=== PATIENT | female | born 1955 | race Caucasian/White ===

== ENCOUNTER 2016-05-02 11:21 | Day surgery (SDC) | payer BC ==
--- NOTE | 2016-04-30 15:16 | HP ---
HISTORY OF PRESENT ILLNESS: The patient is a 60 year-old epigastric pain, associated nausea, no vomiting, some loose stools after her hospital stay. She was noted to have cholelithiasis on ultrasound on 03/16/16. PAST MEDICAL HISTORY: Hypothyroidism, hypercholesterolemia. MEDICATIONS: Levothyroxine, Ropinirole, Nexium, gabapentin, Tricor, [place]. PAST SURGICAL HISTORY: Tubal, total left knee, and half of her thyroid removed and 2 hernia repairs in the past. FAMILY HISTORY: Diabetes, [place], hypertension, hypercholesterolemia. ALLERGIES: No known drug allergies. SOCIAL HISTORY: No smoking or alcohol abuse. REVIEW OF SYSTEMS: Ten systems reviewed, no chest pains or palpitations. Other systems negative or noncontributory as noted above, per pre-admission questionnaire. PHYSICAL EXAMINATION: GENERAL: No acute distress. HEENT: Sclerae nonicteric. NECK: No JVD. CHEST: Normal excursions. Nonlabored breathing. CARDIOVASCULAR: Regular rate and rhythm. ABDOMEN: Soft, nontender in office exam, no peritoneal signs, nondistended. EXTREMITIES: No edema, no cyanosis. NEUROLOGICAL: Alert, moving extremities grossly symmetrically, no gross motor deficits noted. IMPRESSION: Symptomatic cholelithiasis, probable chronic cholecystitis. [place] the patient would benefit from cholecystectomy. The risks and benefits explained in detail, not limited to bleeding, infection, risk of trocar injury or hernia, small risk of bowel/bladder, blood vessel injury, small risk of bile leak, bile duct injury, retained stone or sludge, possibly requiring further procedure, either open or ERCP. General risk of anesthesia, DVT, PE, pneumonia. Risk of aches, pains, bloating, constipation, and/or loose stools possibly chronic in nature. Possibly this procedure may not improve her symptoms, she may need further workup, endoscopy, or other studies or procedures. She understands, agrees with plan of procedure. We will proceed with lap cholecystectomy, possible open as an outpatient.
[~2016-05-02 11:21] MED LIST: DIPRIVAN 200 MG/20 ML IV ONE; Decadron 4 MG INJ IV ONE; Ephedrine Sulfate 50 MG/ML IJ ONE; Lactated Ringers 1,000 ML IV ONE; Quelicin Fliptop 200 MG/10 ML IJ ONE; SUBLIMAZE 100 MCG/2 ML IV ONE; Sensorcaine 0.25% 10 ML ONE; TORAdol 30 mg Injection IJ ONE; Zemuron 100 MG/10 ML IJ ONE; Zofran 4 MG/2 ML VIAL IV ONE
[2016-05-02] MEDS ORDERED: MEFOXIN 2 GM PREMIX** 50 ML IV ONE (11:31)
[2016-05-02] MEDS ORDERED: Pepcid 20 MG VIAL IV ONE (11:31)
[2016-05-02] MEDS ORDERED: Lactated Ringers 1,000 ML IV SCH (12:00)
[2016-05-02] MEDS ORDERED: SUBLIMAZE 100 MCG/2 ML ONE (14:09)
[2016-05-02] MEDS ORDERED: Lactated Ringers 1,000 ML IV ONE (14:09)
[2016-05-02] MEDS ORDERED: Robinul 0.4 MG/2 ML IV ONE (15:30)
[2016-05-02 16:17] VITALS: O2SAT 98
[2016-05-02 16:22] VITALS: BP 145/84; PULSE 82
--- NOTE | 2016-05-03 09:25 | OP ---
SURGERY DATE/TIME: 05/02/2016 1242 PREOPERATIVE DIAGNOSIS: Symptomatic cholelithiasis, chronic cholecystitis. POSTOPERATIVE DIAGNOSIS: Symptomatic cholelithiasis, chronic cholecystitis. PROCEDURE: Laparoscopic cholecystectomy. SURGEON: Dr. Yazan Tiwari. ANESTHESIA: General. ESTIMATED BLOOD LOSS: Minimal. INDICATIONS: As noted above. Risks and benefits explained in detail but not limited to and consent obtained. DESCRIPTION OF PROCEDURE AND FINDINGS: The patient was taken to the OR. General anesthesia was induced. Abdomen prepped and draped in the usual sterile fashion. After official time out and no disagreement with planned procedure, a transverse incision made at the mid abdomen. Fascia grasped and pulled upward. Veress needle inserted and tested with saline. Pneumoperitoneum accomplished insufflating opening pressure of 0-15. An 11 mm bladeless port and camera were inserted without difficulty followed by two - 5 mm right upper quadrant ports and 5 mm epigastric port. There was no evidence of any intra-abdominal injury secondary to trocar insertion. The gallbladder is grasped. It was a little bit intrahepatic. It was dissected posterior, lateral to anterior fashion. Extensive inflammatory reaction around the infundibular cystic duct junction area was quite vascular. With slow careful dissection staying directly on the infundibular and cyst duct area it was slowly and carefully well skeletonized until a critical view obtained both anteriorly and posteriorly. The cystic arteries were clipped directly on the gallbladder wall as necessary this opened up the angle even more to allow for better exposure. Critical view had been obtained anteriorly and posteriorly therefore cystic duct was clipped x3 and divided in usual fashion clipping additional oozing side branch off the cystic artery going back towards the bottom part of the gallbladder on top of infundibulum this was oozing and bleeding and this was clipped. Gallbladder slowly and carefully dissected free from its dense almost concrete attachments to the liver bed staying directly on the gallbladder wall clipping additional oozing side branch off the cystic artery as necessary directly on the gallbladder wall as necessary this took quite some time as the gallbladder was intrahepatic but slowly and carefully accomplished. There was also large vein on the anterior edge of the liver on top of this and this was also clipped around the anterior edge of the liver allowing the gallbladder to finally be freed. Just prior to releasing from final attachments the liver bed re-inspected. Clips noted to be in place in cystic duct and cystic artery stumps. There were no signs of any active bleeding or bile leakage. It was felt there was no benefit from drain placement. Gallbladder released from final attachments to the anterior edge of the liver and placed in [place] sac and pulled out the umbilical 10/11 port and passed off. Fascial defects closed with puncture closure device with #1 Vicryl under direct vision with the camera. Liver bed re-inspected. Clips noted to be in place in cystic ducts and cystic artery stumps. There were no signs of any active bleeding or bile leakage. It was felt that there was no benefit from drain placement at this point. Copious amount of irrigation had been accomplished irrigating until clear. Pneumoperitoneum decompressed. Skin incision closed with 4-0 Vicryl. Steri-Strips and sterile dressing applied. The patient tolerated the procedure well. There were no immediate complications. Findings discussed with the family out in the waiting area.
== END 2016-05-02 16:05 | disposition home or self-care (01) ==
LOC: SDC 11:21
PROVIDERS: ATTEND Surgery
PROC: 0FT44ZZ Resection of Gallbladder, Percutaneous Endoscopic Approach (ICD-10-PCS; principal; 2016-05-02)
DX: K80.10 Calculus of gallbladder with chronic cholecystitis without obstruction (principal); E03.9 Hypothyroidism, unspecified; E78.00 Pure hypercholesterolemia, unspecified; Z79.899 Other long term (current) drug therapy
CPT/HCPCS: 00790; 36415; 82962; 88304; J0330; J0694; J1100; J1885; J2405; J2704; J3010

== ENCOUNTER 2018-07-02 06:51 | Emergency (ER) | payer BC ==
[2018-07-02] MEDS ORDERED: Sodium Chloride 0.9% 1000 ML 1,000 ML IV STA (07:10)
[2018-07-02 07:18] LABS: Hematocrit 42.1 % (35-47); Hemoglobin 13.5 gm/dl (12.0-16.0); Mean Corpuscular Hemoglobin 28.8 pg (26-32); Mean Corpuscular Hgb Concent. 32.1 g/dl (32-36); Mean Platelet Volume 8.3 fl (6-9.5); Platelet Count 295 K/mm3 (150-450); Red Blood Count 4.68 M/mm3 (4.1-5.4); Red Cell Distribution Width 14.4 % (11.5-14.0); White Blood Count 8.2 K/mm3 (4.0-10.5)
[2018-07-02] MEDS ORDERED: Sodium Chloride 0.9% 1000 ML 1,000 ML ONE (07:24)
[2018-07-02 07:32] LABS: ALBUMIN 4.1 g/dL (3.5-5.0); ALKALINE PHOSPHATASE 93 U/L (38-126); ANION GAP 15.7 MEQ/L (5-15); BLOOD UREA NITROGEN 14 mg/dL (7-17); CHLORIDE 104 mmol/L (98-107); Calcium 9.5 mg/dL (8.4-10.2); Carbon Dioxide 26 mmol/L (22-30); Creatinine 1 0.66 mg/dL (0.52-1.04); Glucose 115 mg/dL (74-106); LIPASE 62 U/L (23-300); Potassium 3.4 mmol/L (3.5-5.1); SGOT/AST 35 U/L (14-36); SGPT/ALT 31 U/L (0-35); SODIUM 142 mmol/L (137-145); Total Protein 7.4 g/dL (6.3-8.2)
[2018-07-02 07:47] LABS: ATYPICAL LYMPHS 1 %; Lymphocytes 27 % (24-44); Monocyte 1 % (0.0-12.0); Neutrophils 71 % (36.0-66.0); Total Cells Counted 100; Toxic Granulation 1+
[2018-07-02 07:48] LABS: Platelet Estimate NORMAL (NORMAL)
[2018-07-02 08:37] LABS: Appearance SLIGHTLY CLOUDY (CLEAR); Bilirubin NEGATIVE (NEGATIVE); Blood NEGATIVE Ery/ul (0-5); Epithelial Cells RARE /HPF (FEW); Glucose NEGATIVE (NEGATIVE); Ketones NEGATIVE (NEGATIVE); Leukocyte Esterase NEGATIVE (NEGATIVE); Mucus SLIGHT /HPF (NEGATIVE); Nitrite NEGATIVE (NEGATIVE); Protein,Urine Dip NEGATIVE (Negative); Specific Gravity 1.019 (1.005-1.025); Urobilinogen NEGATIVE mg/dL (0-1); WBC 0-2 /HPF (0-5)
[2018-07-02 09:41] LABS: Adenovirus F 40/41 NEGATIVE (NEGATIVE); Astrovirus NEGATIVE (NEGATIVE); C. Difficile Organism NEGATIVE (NEGATIVE); Campylobacter NEGATIVE (NEGATIVE); Cyclospora cayentanensis NEGATIVE (NEGATIVE); Entamoeaba histolytica NEGATIVE (NEGATIVE); Enteroaggregative E.coli NEGATIVE (NEGATIVE); Giardia lamblia NEGATIVE (NEGATIVE); Rotavirus A NEGATIVE (NEGATIVE); Salmonella NEGATIVE (NEGATIVE); Shiga-like toxin prod.E.coli NEGATIVE (NEGATIVE); Vibrio NEGATIVE (NEGATIVE)
[2018-07-02 09:42] LABS: Sapovirus POSITIVE (NEGATIVE)
--- NOTE | 2018-07-02 10:01 | ERPHSYRPT ---
- History of Present Illness Historian: patient Exam Limitations: no limitations Patient Subjective Stated Complaint: pt states she has had the "stomach flu" for 7 days. states she has been nauseated, and has been having diarrhea and reflux for the last 7 days Triage Nursing Assessment: pt alert and oriented, answers questions approp. pt ambulatory with steady gait ntoed. respirations nonlabored with lungs cta. abd soft and nontender to light palpation. bowel sounds hyper x4 quads. skin pink warm and dry. Physician History: Pt is a 62 y/o female that for a week, has diarrhea. Pt states, her greandsons had diarrhea when they visited her, and she got it now. Pt thought that she is improving a couple of days ago, but this night she was in the BR all night. Pt denies abdominal pain, and vomiting. She does have nausea, and chills. No fever. No SOB or cough. No SOB or cough. Timing/Duration: day(s) Activities at Onset: none Severity of Pain-Max: none Severity of Pain-Current: none Associated Symptoms: diarrhea, nausea Previous symptoms: no prior history Allergies/Adverse Reactions: No Known Drug Allergies Allergy (Verified 07/02/18 07:11) Home Medications: Levothyroxine Sodium 50 Mcg [Synthroid 50 Mcg] 50 mcg PO DAILY 11/17/15 [ History] Esomeprazole Magnesium [Nexium] 40 mg PO DAILY 07/02/18 [History] Gabapentin [Neurontin] 300 mg PO TID 07/02/18 [History] Hx Tetanus, Diphtheria Vaccination/Date Given: Yes Hx Influenza Vaccination/Date Given: Yes Hx Pneumococcal Vaccination/Date Given: No Immunizations Up to Date: Yes - Review of Systems Constitutional: Fatigue Eyes: No Symptoms Ears, Nose, & Throat: No Symptoms Respiratory: No Cough, No Dyspnea Cardiac: No Chest Pain, No Edema, No Syncope Abdominal/Gastrointestinal: Nausea, Diarrhea Genitourinary Symptoms: No Dysuria Musculoskeletal: No Back Pain, No Neck Pain Skin: No Rash Neurological: No Dizziness, No Focal Weakness, No Sensory Changes - Past Medical History Pertinent Past Medical History: Yes Neurological History: No Pertinent History ENT History: No Pertinent History Cardiac History: High Cholesterol Respiratory History: Sleep Apnea Endocrine Medical History: Hypothyroidism Musculoskeletal History: Other GI Medical History: GERD, Gallbladder Disease, Pancreatitis History: No Pertinent History Psycho-Social History: No Pertinent History Female Reproductive Disorders: No Pertinent History Other Medical History: left TKR - Past Surgical History Past Surgical History: Yes Neuro Surgical History: No Pertinent History Cardiac: No Pertinent History Respiratory: No Pertinent History Gastrointestinal: Hernia Repair Genitourinary: No Pertinent History Musculoskeletal: Joint Replacement, Orthopedic Surgery Female Surgical History: Lumpectomy, Tubal Ligation Other Surgical History: lt knee scope and replacement,partial thyroidectomy. right breast lumpectomy. leg veins stripped. right ankle. right shoulder lypoma. bilat carpal tunnel - Social History Smoking Status: Never smoker Exposure to second hand smoke: No Drug Use: none Patient Lives Alone: Yes - Nursing Vital Signs Nursing Vital Signs: Initial Vital Signs Temperature 97.8 F 07/02/18 06:55 Pulse Rate 81 07/02/18 06:55 Respiratory Rate 18 07/02/18 06:55 Blood Pressure 123/74 07/02/18 06:55 O2 Sat by Pulse Oximetry 94 L 07/02/18 06:55 Pain Scale Pain Intensity 0 - Physical Exam General Appearance: no apparent distress, alert Eye Exam: PERRL/EOMI, eyes nml inspection Ears, Nose, Throat Exam: normal ENT inspection, pharynx normal, moist mucous membranes Neck Exam: normal inspection, non-tender, supple, full range of motion Respiratory Exam: normal breath sounds, lungs clear, No respiratory distress Cardiovascular Exam: regular rate/rhythm, normal heart sounds Gastrointestinal/Abdomen Exam: soft, No tenderness, No mass Extremity Exam: normal inspection, normal range of motion, pelvis stable Neurologic Exam: alert, oriented x 3, cooperative, normal mood/affect, nml cerebellar function, sensation nml, No motor deficits SpO2: 98 - Course Nursing assessment & vital signs reviewed: Yes Ordered Tests: Active Orders 24 hr Category Date Time Status IV Insertion STAT Care 07/02/18 07:10 Active CBC W DIFF Stat Lab 07/02/18 07:17 Completed CMP Stat Lab 07/02/18 07:17 Completed LIPASE Stat Lab 07/02/18 07:17 Completed Lactic Acid Stat Lab 07/02/18 07:10 Completed Manual Differential NC Stat Lab 07/02/18 07:17 Completed UA W/RFX UR CULTURE Stat Lab 07/02/18 08:34 Completed Medication Summary Discontinued Medications Generic Name Dose Route Start Last Admin Trade Name Freq PRN Reason Stop Dose Admin Sodium Chloride 1,000 mls @ 999 mls/hr 07/02/18 07:10 07/02/18 08:30 Sodium Chloride 0.9% 1000 Ml IV 07/02/18 08:10 Infused .Q1H1M STA Infusion Sodium Chloride Confirm 07/02/18 07:24 Sodium Chloride 0.9% 1000 Ml Administered 07/02/18 07:25 Dose 1,000 mls @ ud .ROUTE .STK-MED ONE Lab/Rad Data: Laboratory Result Diagrams 07/02/18 07:17 07/02/18 07:17 Laboratory Results 07/02/18 07/02/18 07/02/18 Range/Units 08:34 07:28 07:17 WBC (4.0-10.5) K/mm3 RBC (4.1-5.4) M/mm3 Hgb (12.0-16.0) gm/dl Hct (35-47) % MCV (78-100) fl MCH (26-32) pg MCHC (32-36) g/dl RDW (11.5-14.0) % Plt Count (150-450) K/mm3 MPV (6-9.5) fl Segmented Neutrophils (36.0-66.0) % Lymphocytes (Manual) (24-44) % Monocytes (Manual) (0.0-12.0) % Atypical Lymphocytes % Toxic Granulation Platelet Estimate (NORMAL) RBC Morphology Sodium 142 (137-145) mmol/L Potassium 3.4 L (3.5-5.1) mmol/L Chloride 104 (98-107) mmol/L Carbon Dioxide 26 (22-30) mmol/L Anion Gap 15.7 H (5-15) MEQ/L BUN 14 (7-17) mg/dL Creatinine 0.66 (0.52-1.04) mg/dL Estimated GFR > 60.0 ML/MIN Glucose 115 H (74-106) mg/dL Lactic Acid (0.4-2.0) Calcium 9.5 (8.4-10.2) mg/dL Total Bilirubin 0.50 (0.2-1.3) mg/dL AST 35 (14-36) U/L ALT 31 (0-35) U/L Alkaline Phosphatase 93 (38-126) U/L Serum Total Protein 7.4 (6.3-8.2) g/dL Albumin 4.1 (3.5-5.0) g/dL Lipase 62 (23-300) U/L Urine Color YELLOW (YELLOW) Urine Appearance SLIGHTLY CLOUDY (CLEAR) Urine pH 5.0 (5-6) Ur Specific [place] 1.019 (1.005-1.025) Urine Protein NEGATIVE (Negative) Urine Ketones NEGATIVE (NEGATIVE) Urine Blood NEGATIVE (0-5) Arsen/ul Urine Nitrite NEGATIVE (NEGATIVE) Urine Bilirubin NEGATIVE (NEGATIVE) Urine Urobilinogen NEGATIVE (0-1) mg/dL Ur Leukocyte Esterase NEGATIVE (NEGATIVE) Urine WBC (Auto) 0-2 (0-5) /HPF Urine RBC (Auto) NONE (0-2) /HPF U Epithel Cells (Auto) RARE (FEW) /HPF Urine Mucus (Auto) SLIGHT (NEGATIVE) /HPF Urine Culture Reflexed NO (NO) Urine Glucose NEGATIVE (NEGATIVE) mg/dL Stl C. cayetanensis PCR NEGATIVE (NEGATIVE) Stl Adenov F 40/41 PCR NEGATIVE (NEGATIVE) Stool Astrovirus (PCR) NEGATIVE (NEGATIVE) Stool Cryptosporidium PCR NEGATIVE (NEGATIVE) Stool EPEC (PCR) NEGATIVE (NEGATIVE) Stool EAEC (PCR) NEGATIVE (NEGATIVE) Stl E. histolytica PCR NEGATIVE (NEGATIVE) Stl P. shigelloides PCR NEGATIVE (NEGATIVE) Stool Sapovirus (PCR) POSITIVE A (NEGATIVE) St Y.enterocolitica PCR NEGATIVE (NEGATIVE) Stool Vibrio (PCR) NEGATIVE (NEGATIVE) Stl Vibrio cholerae PCR NEGATIVE (NEGATIVE) Stl Norovirus GI/GII PCR NEGATIVE (NEGATIVE) Campylobacter (PCR) NEGATIVE (NEGATIVE) C. difficile Toxin A&B NEGATIVE (NEGATIVE) Enterotoxigenic E. coli NEGATIVE (NEGATIVE) E.coli Shiga Toxins NEGATIVE (NEGATIVE) Giardia lamblia NEGATIVE (NEGATIVE) Rotavirus A (PCR) NEGATIVE (NEGATIVE) Salmonella (PCR) NEGATIVE (NEGATIVE) Shigella (PCR) NEGATIVE (NEGATIVE) 07/02/18 07/02/18 Range/Units 07:17 07:10 WBC 8.2 (4.0-10.5) K/mm3 RBC 4.68 (4.1-5.4) M/mm3 Hgb 13.5 (12.0-16.0) gm/dl Hct 42.1 (35-47) % MCV 90.0 (78-100) fl MCH 28.8 (26-32) pg MCHC 32.1 (32-36) g/dl RDW 14.4 H (11.5-14.0) % Plt Count 295 (150-450) K/mm3 MPV 8.3 (6-9.5) fl Segmented Neutrophils 71 H (36.0-66.0) % Lymphocytes (Manual) 27 (24-44) % Monocytes (Manual) 1 (0.0-12.0) % Atypical Lymphocytes 1 % Toxic Granulation 1+ Platelet Estimate NORMAL (NORMAL) RBC Morphology NORMAL Sodium (137-145) mmol/L Potassium (3.5-5.1) mmol/L Chloride (98-107) mmol/L Carbon Dioxide (22-30) mmol/L Anion Gap (5-15) MEQ/L BUN (7-17) mg/dL Creatinine (0.52-1.04) mg/dL Estimated GFR ML/MIN Glucose (74-106) mg/dL Lactic Acid 1.1 (0.4-2.0) Calcium (8.4-10.2) mg/dL Total Bilirubin (0.2-1.3) mg/dL AST (14-36) U/L ALT (0-35) U/L Alkaline Phosphatase (38-126) U/L Serum Total Protein (6.3-8.2) g/dL Albumin (3.5-5.0) g/dL Lipase (23-300) U/L Urine Color (YELLOW) Urine Appearance (CLEAR) Urine pH (5-6) Ur Specific [place] (1.005-1.025) Urine Protein (Negative) Urine Ketones (NEGATIVE) Urine Blood (0-5) Arsen/ul Urine Nitrite (NEGATIVE) Urine Bilirubin (NEGATIVE) Urine Urobilinogen (0-1) mg/dL Ur Leukocyte Esterase (NEGATIVE) Urine WBC (Auto) (0-5) /HPF Urine RBC (Auto) (0-2) /HPF U Epithel Cells (Auto) (FEW) /HPF Urine Mucus (Auto) (NEGATIVE) /HPF Urine Culture Reflexed (NO) Urine Glucose (NEGATIVE) mg/dL Stl C. cayetanensis PCR (NEGATIVE) Stl Adenov F 40/41 PCR (NEGATIVE) Stool Astrovirus (PCR) (NEGATIVE) Stool Cryptosporidium PCR (NEGATIVE) Stool EPEC (PCR) (NEGATIVE) Stool EAEC (PCR) (NEGATIVE) Stl E. histolytica PCR (NEGATIVE) Stl P. shigelloides PCR (NEGATIVE) Stool Sapovirus (PCR) (NEGATIVE) St Y.enterocolitica PCR (NEGATIVE) Stool Vibrio (PCR) (NEGATIVE) Stl Vibrio cholerae PCR (NEGATIVE) Stl Norovirus GI/GII PCR (NEGATIVE) Campylobacter (PCR) (NEGATIVE) C. difficile Toxin A&B (NEGATIVE) Enterotoxigenic E. coli (NEGATIVE) E.coli Shiga Toxins (NEGATIVE) Giardia lamblia (NEGATIVE) Rotavirus A (PCR) (NEGATIVE) Salmonella (PCR) (NEGATIVE) Shigella (PCR) (NEGATIVE) - Progress Progress: unchanged Progress Note: 07/02/18 10:03 Pt had lab work done, that did not show any leukocytosis, or elevated BUN or sCr. Pt's K is slightly low at 3.4. GI p[domonique was positive for Sapovirus. Pt was encouraged to keep herself hydrated, avoid exposure to other people, and stay off work. Pt should f/u with her PCP. Discussed with : Javed Will see patient in: office Counseled pt/family regarding: need for follow-up - Departure Departure Disposition: Home Clinical Impression: Nucleic acid assay by PCR positive for sapovirus Condition: Stable Critical Care Time: No Referrals: ANNE COLON MD [Primary Care Provider] - Additional Instructions: Pt should keep herself well hydrated and f/u with her PCP in a week.
[2018-07-02 10:27] VITALS: BP 123/67; PULSE 70; O2SAT 97
== END 2018-07-02 10:27 | disposition home or self-care (01) ==
LOC: ED 06:51
DX: A08.11 Acute gastroenteropathy due to Norwalk agent (principal)
CPT/HCPCS: 36000; 36415; 80053; 81001; 83605; 83690; 85025; 87507; 96360; 99284

== ENCOUNTER 2024-07-01 13:47 | Observation (INO) | payer MEDICARE ==
--- NOTE | 2024-07-01 14:17 | ERPHSYRPT ---
- History of Present Illness Source: patient Exam Limitations: no limitations Physician History: About 10 days ago the patient had some diarrhea that was pretty severe. She was dehydrated and went to another emergency room. When she was there they hydrated her with the IV fluids and discovered that her potassium was 2.8. They started her on 10 mill equivalents twice a day and has been doing that for about a week. Yesterday she began having some tingling in her hands and face. It primarily started in the face and around the mouth. It now involves the face as well as both hands. There is no involvement in the lower extremities. She has not been hyperventilating. She does not have a history of anxiety or panic attacks.The symptoms are pretty intermittent but they are coming more frequently. They seem to be coming more consistent now.She also has some contractures in her hands. She feels a some spasms in the fingers. This happens intermittently. It is unknown if she had a magnesium deficit. She did not come to this ER she went to another 1.Nothing makes his symptoms better or worse Allergies/Adverse Reactions: hydrocodone Adverse Reaction (Verified 07/01/24 14:04) Vomiting morphine Adverse Reaction (Verified 07/01/24 14:04) Vomiting Home Medications: Levothyroxine Sodium 50 Mcg [Synthroid 50 Mcg] 50 mcg PO DAILY 11/17/15 [History] Lisinopril/Hydrochlorothiazide [Lisinopril-Hctz 20-12.5 mg Tab] 1 tab PO DAILY 07/01/24 [History] Potassium Chloride 10 meq PO BID 07/01/24 [History] Hx Tetanus, Diphtheria Vaccination/Date Given: Yes Hx Influenza Vaccination/Date Given: Yes Hx Pneumococcal Vaccination/Date Given: No - Review of Systems Constitutional: No Symptoms Eyes: No Symptoms Respiratory: No Symptoms Cardiac: No Symptoms Abdominal/Gastrointestinal: No Symptoms Musculoskeletal: No Symptoms All Other Systems: Reviewed and Negative - Past Medical History GI Medical History: GERD, Pancreatitis, Gallbladder Disease - Past Surgical History Musculoskeletal: Orthopedic Surgery, Joint Replacement - Social History Smoking Status: Never smoker Exposure to second hand smoke: No Drug Use: none Patient Lives Alone: Yes - Nursing Vital Signs Nursing Vital Signs: Initial Vital Signs Temperature 97.7 F 07/01/24 14:00 Pulse Rate 78 07/01/24 14:00 Respiratory Rate 22 07/01/24 14:00 Blood Pressure 136/67 07/01/24 14:00 O2 Sat by Pulse Oximetry 94 L 07/01/24 14:00 Pain Scale Pain Intensity 0 - Physical Exam General Appearance: no apparent distress Eyes, Ears, Nose, Throat Exam: normal ENT inspection Cardiovascular/Respiratory Exam: chest non-tender, normal breath sounds, regular rate/rhythm Wrist Exam: normal inspection Hand Exam: normal inspection Neuro/Tendon Exam: normal sensation, normal motor functions, normal tendon functions Mental Status Exam: alert, oriented x 3 Skin Exam: normal color - Course Nursing assessment & vital signs reviewed: Yes Ordered Tests: Active Orders 24 hr Category Date Time Status EKG-ER Only STAT Care 07/01/24 14:17 Active CBC W DIFF Stat Lab 07/01/24 14:20 Completed CMP Stat Lab 07/01/24 14:20 Completed MAG [MAGNESIUM] Stat Lab 07/01/24 14:20 Completed Medication Summary Discontinued Medications Generic Name Dose Route Start Last Admin Trade Name Freq PRN Reason Stop Dose Admin Calcium Chloride Confirm 07/01/24 16:17 Calcium Chloride 100 Mg/Ml 10ml Inj. Administered 07/01/24 16:18 Dose 1,000 mg .ROUTE .STK-MED ONE Sodium Chloride 1,000 mls @ 999 mls/hr 07/01/24 14:13 07/01/24 15:38 Sodium Chloride 0.9% 1000 Ml IV 07/01/24 15:13 Infused .Q1H1M STA Infusion Sodium Chloride Confirm 07/01/24 14:30 Sodium Chloride 0.9% 1000 Ml Administered 07/01/24 14:31 Dose 1,000 mls @ ud .ROUTE .STK-MED ONE Magnesium Sulfate/Water 2 gm in 50 mls @ 100 mls/hr 07/01/24 15:33 07/01/24 16:13 Magnesium Sulf 2 G/50 Ml Bag IV 07/01/24 16:02 Infused ONCE ONE Infusion Calcium Chloride 1,000 mg/ 110 mls @ 220 mls/hr 07/01/24 15:34 07/01/24 16:18 Sodium Chloride IV 07/01/24 16:03 220 mls/hr ONCE ONE 220 mls/hr Administration Magnesium Sulfate/Water Confirm 07/01/24 15:39 Magnesium Sulf 2 G/50 Ml Bag Administered 07/01/24 15:40 Dose 2 gm in 50 mls @ ud IV .STK-MED ONE Sodium Chloride Confirm 07/01/24 16:17 Sodium Chloride 0.9% Administered 07/01/24 16:18 Dose 100 mls @ ud .ROUTE .STK-MED ONE Lab/Rad Data: Laboratory Result Diagrams 07/01/24 14:20 07/01/24 14:20 Laboratory Results 07/01/24 07/01/24 Range/Units 14:20 14:20 WBC 9.0 (3.98-10.04) x10^3/uL RBC 3.77 L (3.93-5.22) x10^6/uL Hgb 10.9 L (11.2-15.7) g/dL Hct 33.5 L (34.1-44.9) % MCV 88.9 (79.4-94.8) fL MCH 28.9 (25.6-32.2) pg MCHC 32.5 (32.2-35.5) g/dL RDW 13.8 (11.7-14.4) % Plt Count 298 (182-369) x10^3/uL MPV 8.3 L (9.4-12.3) fL Gran % 71.6 H (34.0-71.1) % Immature Gran % (Auto) 0.9 H (0.001-0.429) % Nucleat RBC Rel Count 0.0 (0.00-0.2) % Eos # (Auto) 0.08 (0.04-0.36) x10^3/uL Immature Gran # (Auto) 0.08 H (0.001-0.031) x10^3u/L Absolute Lymphs (auto) 1.91 (1.18-3.74) x10^3/uL Absolute Monos (auto) 0.45 (0.24-0.86) x10^3/uL Absolute Nucleated RBC 0.00 (0.00-0.012) x10^3u/L Lymphocytes % 21.2 (19.3-51.7) % Monocytes % 5.0 (4.7-12.5) % Eosinophils % 0.9 (0.7-5.8) % Basophils % 0.4 (0.1-1.2) % Absolute Granulocytes 6.46 H (1.56-6.13) x10^3/uL Basophils # 0.04 (0.01-0.08) x10^3/uL Sodium 140 (135-145) mmol/L Potassium 3.1 L (3.5-5.1) mmol/L Chloride 97 L (98-107) mmol/L Carbon Dioxide 32 H (22-30) mmol/L Anion Gap 13.7 (5-15) MEQ/L BUN 19 H (7-17) mg/dL Creatinine 1.08 H (0.52-1.04) mg/dL Estimated GFR 56.3 ML/MIN Glucose 115 H (74-106) mg/dL Calcium 7.4 L (8.4-10.2) mg/dL Magnesium 0.6 L* (1.6-2.3) mg/dL Total Bilirubin 0.50 (0.2-1.3) mg/dL AST 29 (14-36) U/L ALT 20 (0-35) U/L Alkaline Phosphatase 63 (38-126) U/L Serum Total Protein 7.1 (6.3-8.2) g/dL Albumin 4.0 (3.5-5.0) g/dL - Progress Progress: improved Progress Note: I figured the patient probably had an electrolyte abnormality due to her symptoms. She did indeed. She had a low calcium of 7.4 her magnesium was 0.6 and her potassium was 3.1. I gave her a liter of fluids and 2 g of magnesium as well as 1000 mg of calcium. The rest of her lab work looked decent. Her albumin was not abnormal. It was 4.0. I spoke with our hospitalist Dr. Swan. She agreed to accept the patient in admission. 07/01/24 16:45 - Departure Departure Disposition: Observation Clinical Impression: Hypocalcemia, Hypomagnesemia, Hypokalemia Condition: Stable Critical Care Time: No Referrals: ANNE COLON MD [Primary Care Provider, [facility]] - Follow up/PCP as directed
[2024-07-01] MEDS ORDERED: Sodium Chloride 0.9% 1000 ML 1,000 ML ONE (14:30)
[2024-07-01 14:31] LABS: Absolute Neutrophil Ct (ANC) 6.46 x10^3/uL (1.56-6.13); BASOPHIL % 0.4 % (0.1-1.2); Basophil (Absolute #) 0.04 x10^3/uL (0.01-0.08); Eosinophil % 0.9 % (0.7-5.8); Eosinophil (Absolute #) 0.08 x10^3/uL (0.04-0.36); Hematocrit 33.5 % (34.1-44.9); Hemoglobin 10.9 g/dL (11.2-15.7); IMMATURE GRAN # 0.08 x10^3u/L (0.001-0.031); IMMATURE GRAN % 0.9 % (0.001-0.429); Lymphocyte (Absolute #) 1.91 x10^3/uL (1.18-3.74); Lymphocytes % 21.2 % (19.3-51.7); Mean Cell Volume 88.9 fL (79.4-94.8); Mean Corpuscular Hemoglobin 28.9 pg (25.6-32.2); Mean Corpuscular Hgb Concent. 32.5 g/dL (32.2-35.5); Mean Platelet Volume 8.3 fL (9.4-12.3); Monocyte (Absolute #) 0.45 x10^3/uL (0.24-0.86); Neutrophil % 71.6 % (34.0-71.1); Platelet Count 298 x10^3/uL (182-369); Red Blood Count 3.77 x10^6/uL (3.93-5.22); Red Cell Distribution Width 13.8 % (11.7-14.4)
[2024-07-01] MEDS: Sodium Chloride 0.9% 1000 ML 1,000 ML IV STA (14:31)
[2024-07-01 14:44] LABS: ANION GAP 13.7 MEQ/L (5-15); BILIRUBIN,TOTAL 0.5 mg/dL (0.2-1.3); Calcium 7.4 mg/dL (8.4-10.2); Creatinine 1 1.08 mg/dL (0.52-1.04); EST GLOMERULAR FILTRATION RATE 56.3 ML/MIN; Potassium 3.1 mmol/L (3.5-5.1); Total Protein 7.1 g/dL (6.3-8.2)
[2024-07-01 14:59] LABS: MAGNESIUM 0.6 mg/dL (1.6-2.3)
[2024-07-01] MEDS ORDERED: MAGNESIUM SULF 2 G/50 ML BAG 2 GM/50 ML PIGGYBACK IV ONE (15:39)
[2024-07-01] MEDS: MAGNESIUM SULF 2 G/50 ML BAG 2 GM/50 ML PIGGYBACK IV ONE ×2 (15:39→18:41)
[2024-07-01] MEDS ORDERED: CALCIUM CHLORIDE 10% 1000 MG ONE (16:17)
[2024-07-01] MEDS ORDERED: Sodium Chloride 0.9% 100 ML ONE (16:17)
[2024-07-01] MEDS: CALCIUM CHLORIDE 10% 1000 MG 1,000 MG in Sodium Chloride 0.9% 100 ML IV ONE (16:18)
[2024-07-01] MEDS: Hydromorphone 1 mg/ml Injection IV ONE (17:02)
--- NOTE | 2024-07-01 17:23 | PCM.HP ---
<CHRIS ARREDONDO - Last Filed: 07/01/24 17:39> History of Present Illness - Chief Complaint Chief Complaint: Electrolyte abnormalities Date: 07/01/24 History of Present Illness: Ms. Arredondo is a 68 year old female with a pmhx of GERD, HTN, HLD, MENDOZA, hypothyroid s/p partial thyroidectomy, DM , and vitamin D deficiency who presented to ED 07/01/24 with complaints of intermittent facial and hand paresthesias, including tingling and muscle spasms, that began approximately one day prior to admission. About 10 days ago, she experienced the stomach flu with severe diarrhea and vomiting resulting in dehydration, for which she sought care at an outside emergency department in [place]. At that time, she was found to have hypokalemia (potassium reported at 2.8) and was started on oral potassium chloride 10 mEq twice daily, which she has been taking for the past week. She reports that her current symptoms began around the mouth and subsequently progressed to involve both hands. She describes the spasms as intermittent but increasing in frequency and consistency. There are no identifiable alleviating or aggravating factors. She also reports left hand contracture at one point. She reports she is no longer experiencing nausea, vomiting, or diarrhea. Last episode was approximately 5 days ago. Denies fever,cough, sob, cp, abdominal pain, PERDUE, or dizziness. Upon arrival to ED, vitals stable. Laboratory findings remarkable for normocytic anemia, persistent hypokalemia (potassium 3.1), hypocalcemia (calcium 7.4), hypomagnesemia (magnesium 0.6 ), and a mild acute kidney injury (creatinine 1.08 from a baseline of 0.6 ). Albumin was normal at 4.0. She received a 1-liter bolus of intravenous fluids, 2 grams of intravenous magnesium sulfate, and 1000 mg of intravenous calcium chloride. Admission for electrolyte management and monitoring. - Review of Systems Constitutional: No Symptoms Eyes: No Symptoms Ears, Nose, & Throat: No Symptoms Respiratory: No Symptoms Cardiac: No Symptoms Abdominal/Gastrointestinal: No Symptoms Genitourinary Symptoms: No Symptoms Musculoskeletal: No Symptoms Skin: No Symptoms Neurological: Parasthesia, Sensory Changes Psychological: No Symptoms Endocrine: No Symptoms Hematologic/Lymphatic: Anemia Immunological/Allergic: No Symptoms Medications & Allergies Home Medications: Home Medication List Levothyroxine Sodium 50 Mcg [Synthroid 50 Mcg] 50 mcg PO DAILY 11/17/15 [History Confirmed 07/01/24] Lisinopril/Hydrochlorothiazide [Lisinopril-Hctz 20-12.5 mg Tab] 1 tab PO DAILY 07/01/24 [History Confirmed 07/01/24] Omeprazole 20 mg PO DAILY 07/01/24 [History Confirmed 07/01/24] Potassium Chloride 10 meq PO BID 07/01/24 [History Confirmed 07/01/24] Allergies/Adverse Reactions: Allergies Allergy/AdvReac Type Severity Reaction Status Date / Time hydrocodone AdvReac Vomiting Verified 07/01/24 14:04 morphine AdvReac Vomiting Verified 07/01/24 14:04 - Past Medical History Past Medical History: Yes Neurological History: No Pertinent History ENT History: No Pertinent History Cardiac History: High Cholesterol, Hypertension Respiratory History: Sleep Apnea Endocrine Medical History: Diabetes Type II, Hypothyroidism Musculoskelatal History: Other GI Medical History: GERD, Pancreatitis, Gallbladder Disease History: No Pertinent History Pyscho-Social History: No Pertinent History Reproductive Disorders: No Pertinent History Comment: left TKR, hypokalemia - Past Surgical History Past Surgical History: Yes Neuro Surgical History: No Pertinent History Cardiac History: No Pertinent History Respiratory Surgery: No Pertinent History GI Surgical History: Hernia Repair Genitourinary Surgical Hx: No Pertinent History Musculskeletal Surgical Hx: Orthopedic Surgery, Joint Replacement Female Surgical History: Lumpectomy, Tubal Ligation Other Surgical History: lt knee scope and replacement, partial thyroidectomy, right breast lumpectomy, leg veins stripped, right ankle, right shoulder lypoma,. bilat carpal tunnel Significant Family History: heart disease, diabetes, hypertension, other (MS) - Social History Smoking Status: Never smoker Exposure to second hand smoke: No Alcohol: None Drug Use: none - Social Determinants of Health Will the patient participate in the screening: Yes Do you worry about a steady place to live?: No Do you have any problems with any of the following?: No known problems In the past 12 months,have you had to go without utilities?: No Have you or anyone in your house had to go without enough: No Transportation Issues: No Has anyone in your support network made you feel unsafe?: No - Physical Exam Vital Signs: Vital Signs - 24 hr Temp Pulse Resp BP BP Pulse Ox 07/01/24 17:01 56 L 26 H 139/59 99 07/01/24 16:30 68 34 H 122/82 97 07/01/24 16:01 67 18 138/63 96 07/01/24 15:49 57 L 24 130/76 96 07/01/24 15:40 62 33 H 97 07/01/24 15:32 63 22 98 07/01/24 15:01 64 17 108/53 97 07/01/24 14:31 80 19 107/66 93 L 07/01/24 14:10 76 26 H 136/67 94 L 07/01/24 14:00 97.7 F 78 22 136/67 94 L General Appearance: no apparent distress Neurologic Exam: alert, oriented x 3, cooperative Eye Exam: PERRL/EOMI Ears, Nose, Throat Exam: normal ENT inspection Neck Exam: normal inspection Respiratory Exam: normal breath sounds, lungs clear Cardiovascular Exam: regular rate/rhythm, normal heart sounds Gastrointestinal/Abdomen Exam: soft, normal bowel sounds Pelvic Exam: not done Rectal Exam: deferred Back Exam: normal inspection Extremity Exam: normal inspection Skin Exam: normal color Results - Labs Lab/Micro Results: Lab Results-Last 24 Hours 07/01/24 07/01/24 Range/Units 14:20 14:20 WBC 9.0 (3.98-10.04) x10^3/uL RBC 3.77 L (3.93-5.22) x10^6/uL Hgb 10.9 L (11.2-15.7) g/dL Hct 33.5 L (34.1-44.9) % MCV 88.9 (79.4-94.8) fL MCH 28.9 (25.6-32.2) pg MCHC 32.5 (32.2-35.5) g/dL RDW 13.8 (11.7-14.4) % Plt Count 298 (182-369) x10^3/uL MPV 8.3 L (9.4-12.3) fL Gran % 71.6 H (34.0-71.1) % Immature Gran % (Auto) 0.9 H (0.001-0.429) % Nucleat RBC Rel Count 0.0 (0.00-0.2) % Eos # (Auto) 0.08 (0.04-0.36) x10^3/uL Immature Gran # (Auto) 0.08 H (0.001-0.031) x10^3u/L Absolute Lymphs (auto) 1.91 (1.18-3.74) x10^3/uL Absolute Monos (auto) 0.45 (0.24-0.86) x10^3/uL Absolute Nucleated RBC 0.00 (0.00-0.012) x10^3u/L Lymphocytes % 21.2 (19.3-51.7) % Monocytes % 5.0 (4.7-12.5) % Eosinophils % 0.9 (0.7-5.8) % Basophils % 0.4 (0.1-1.2) % Absolute Granulocytes 6.46 H (1.56-6.13) x10^3/uL Basophils # 0.04 (0.01-0.08) x10^3/uL Sodium 140 (135-145) mmol/L Potassium 3.1 L (3.5-5.1) mmol/L Chloride 97 L (98-107) mmol/L Carbon Dioxide 32 H (22-30) mmol/L Anion Gap 13.7 (5-15) MEQ/L BUN 19 H (7-17) mg/dL Creatinine 1.08 H (0.52-1.04) mg/dL Estimated GFR 56.3 ML/MIN Glucose 115 H (74-106) mg/dL Calcium 7.4 L (8.4-10.2) mg/dL Magnesium 0.6 L* (1.6-2.3) mg/dL Total Bilirubin 0.50 (0.2-1.3) mg/dL AST 29 (14-36) U/L ALT 20 (0-35) U/L Alkaline Phosphatase 63 (38-126) U/L Serum Total Protein 7.1 (6.3-8.2) g/dL Albumin 4.0 (3.5-5.0) g/dL Assessment/Plan (1) Hypomagnesemia Current Visit: Yes Status: Acute Assessment & Plan: -Likely secondary to diarrhea -Magnesium was critically low at 0.6 -Received 2 grams of IV magnesium sulfate in the ED -Continue IV magnesium sulfate replacement with another 2g -Repeat Mag level in 6 hours -Tele Code(s): E83.42 - HYPOMAGNESEMIA (2) Hypocalcemia Current Visit: Yes Status: Acute Assessment & Plan: -Calcium 7.4 on admission with normal albumin (4.0 g/dL) in the setting of critical mag level at 0.6 -Likely secondary to hypomagnesemia impairing parathyroid hormone function -Obtain vitamin D, PTH intact and Ionized calcium levels in the a.m if levels still low after correcting magnesium level -Received 1000 mg IV calcium chloride in the ED -Continue calcium supplementation as needed -Monitor serum calcium levels every 612 hours -Replete magnesium Code(s): E83.51 - HYPOCALCEMIA (3) Hypokalemia Current Visit: Yes Status: Acute Assessment & Plan: -Potassium reviewed at 3.1 on admission -Replenish per potassium protocol -Monitor renal/lytes daily -Replete carefully in setting of concurrent hypomagnesemia to optimize potassium uptake -Tele VTE: Lovenox PPI: Protonix Dispo: 1-2 days Code(s): E87.6 - HYPOKALEMIA (4) Hypothyroidism (acquired) Current Visit: Yes Status: Acute Assessment & Plan: -continue home meds -s/p partial thyroidectomy -TSH reviewed from OP labs 06/28/24- WNL at 0.734 Code(s): E03.9 - HYPOTHYROIDISM, UNSPECIFIED (5) Type 2 diabetes mellitus Current Visit: Yes Status: Acute Assessment & Plan: -Newly diagnosed OP- started on metformin -will hold for now -SSI -A1c reviewed from 06/28/24 - 6.83 (6) HTN (hypertension) Current Visit: Yes Status: Acute Assessment & Plan: -BP stable - continue home meds Code(s): I10 - ESSENTIAL (PRIMARY) HYPERTENSION (7) Vitamin D deficiency Current Visit: Yes Status: Acute Assessment & Plan: -Reviewed OP labs from 06/28/24 - vitamin D level at 18.8 - will continue supplementation Code(s): E55.9 - VITAMIN D DEFICIENCY, UNSPECIFIED (8) Normocytic anemia Current Visit: Yes Status: Acute Assessment & Plan: -Anemia noted on labs; presumed chronic but unclear etiology -No acute bleeding identified -Monitor hemoglobin/hematocrit -Consider outpatient workup -iron studies, B12, folate, reticulocyte count Code(s): D64.9 - ANEMIA, UNSPECIFIED Telemedicine Encounter - Telemedicine Encounter Telemedicine Encounter: "The entirety of this encounter was performed via Telemedicine" This visit was performed using real-time audio and video connection between my location and thepatients locationwith the assistance of a surrogateat the patients location. Written or verbal consent was obtained from the patient/guardian to perform this visit usingnchrQuantum [employer] Corporationtelemedicine technology. Any patient questions regarding the telemedicine interaction were answered. <ALEKSANDR ROJAS - Last Filed: 07/01/24 22:29> History of Present Illness - Chief Complaint History of Present Illness: is a 68 year old female. - Physical Exam Vital Signs: Vital Signs - 24 hr Temp Pulse Resp BP BP Pulse Ox 07/01/24 20:00 97.0 F 74 18 132/70 92 L 07/01/24 17:42 97.1 F 68 15 120/60 94 L 07/01/24 17:01 56 L 26 H 139/59 99 07/01/24 16:30 68 34 H 122/82 97 07/01/24 16:01 67 18 138/63 96 07/01/24 15:49 57 L 24 130/76 96 07/01/24 15:40 62 33 H 97 07/01/24 15:32 63 22 98 07/01/24 15:01 64 17 108/53 97 07/01/24 14:31 80 19 107/66 93 L 07/01/24 14:10 76 26 H 136/67 94 L 07/01/24 14:00 97.7 F 78 22 136/67 94 L Results - Labs Lab/Micro Results: Lab Results-Last 24 Hours 07/01/24 07/01/24 07/01/24 Range/Units 14:20 14:20 19:00 WBC 9.0 (3.98-10.04) x10^3/uL RBC 3.77 L (3.93-5.22) x10^6/uL Hgb 10.9 L (11.2-15.7) g/dL Hct 33.5 L (34.1-44.9) % MCV 88.9 (79.4-94.8) fL MCH 28.9 (25.6-32.2) pg MCHC 32.5 (32.2-35.5) g/dL RDW 13.8 (11.7-14.4) % Plt Count 298 (182-369) x10^3/uL MPV 8.3 L (9.4-12.3) fL Gran % 71.6 H (34.0-71.1) % Immature Gran % (Auto) 0.9 H (0.001-0.429) % Nucleat RBC Rel Count 0.0 (0.00-0.2) % Eos # (Auto) 0.08 (0.04-0.36) x10^3/uL Immature Gran # (Auto) 0.08 H (0.001-0.031) x10^3u/L Absolute Lymphs (auto) 1.91 (1.18-3.74) x10^3/uL Absolute Monos (auto) 0.45 (0.24-0.86) x10^3/uL Absolute Nucleated RBC 0.00 (0.00-0.012) x10^3u/L Lymphocytes % 21.2 (19.3-51.7) % Monocytes % 5.0 (4.7-12.5) % Eosinophils % 0.9 (0.7-5.8) % Basophils % 0.4 (0.1-1.2) % Absolute Granulocytes 6.46 H (1.56-6.13) x10^3/uL Basophils # 0.04 (0.01-0.08) x10^3/uL Sodium 140 (135-145) mmol/L Potassium 3.1 L 3.3 L (3.5-5.1) mmol/L Chloride 97 L (98-107) mmol/L Carbon Dioxide 32 H (22-30) mmol/L Anion Gap 13.7 (5-15) MEQ/L BUN 19 H (7-17) mg/dL Creatinine 1.08 H (0.52-1.04) mg/dL Estimated GFR 56.3 ML/MIN Glucose 115 H (74-106) mg/dL POC Glucometer (74 to 106) mg/dL Calcium 7.4 L (8.4-10.2) mg/dL Magnesium 0.6 L* (1.6-2.3) mg/dL Total Bilirubin 0.50 (0.2-1.3) mg/dL AST 29 (14-36) U/L ALT 20 (0-35) U/L Alkaline Phosphatase 63 (38-126) U/L Serum Total Protein 7.1 (6.3-8.2) g/dL Albumin 4.0 (3.5-5.0) g/dL 07/01/24 07/01/24 Range/Units 21:10 21:45 WBC (3.98-10.04) x10^3/uL RBC (3.93-5.22) x10^6/uL Hgb (11.2-15.7) g/dL Hct (34.1-44.9) % MCV (79.4-94.8) fL MCH (25.6-32.2) pg MCHC (32.2-35.5) g/dL RDW (11.7-14.4) % Plt Count (182-369) x10^3/uL MPV (9.4-12.3) fL Gran % (34.0-71.1) % Immature Gran % (Auto) (0.001-0.429) % Nucleat RBC Rel Count (0.00-0.2) % Eos # (Auto) (0.04-0.36) x10^3/uL Immature Gran # (Auto) (0.001-0.031) x10^3u/L Absolute Lymphs (auto) (1.18-3.74) x10^3/uL Absolute Monos (auto) (0.24-0.86) x10^3/uL Absolute Nucleated RBC (0.00-0.012) x10^3u/L Lymphocytes % (19.3-51.7) % Monocytes % (4.7-12.5) % Eosinophils % (0.7-5.8) % Basophils % (0.1-1.2) % Absolute Granulocytes (1.56-6.13) x10^3/uL Basophils # (0.01-0.08) x10^3/uL Sodium (135-145) mmol/L Potassium (3.5-5.1) mmol/L Chloride (98-107) mmol/L Carbon Dioxide (22-30) mmol/L Anion Gap (5-15) MEQ/L BUN (7-17) mg/dL Creatinine (0.52-1.04) mg/dL Estimated GFR ML/MIN Glucose (74-106) mg/dL POC Glucometer 145 H (74 to 106) mg/dL Calcium (8.4-10.2) mg/dL Magnesium 2.3 (1.6-2.3) mg/dL Total Bilirubin (0.2-1.3) mg/dL AST (14-36) U/L ALT (0-35) U/L Alkaline Phosphatase (38-126) U/L Serum Total Protein (6.3-8.2) g/dL Albumin (3.5-5.0) g/dL Telemedicine Encounter - Telemedicine Encounter Telemedicine Encounter: "The entirety of this encounter was performed via Telemedicine" This visit was performed using real-time audio and video connection between my location and thepatients locationwith the assistance of a surrogateat the patients location. Written or verbal consent was obtained from the patient/guardian to perform this visit usingsynchrQuantum Materials Corporationtelemedicine technology. Any patient questions regarding the telemedicine interaction were answered. MOIRA Encounter - MOIRA Encounter Attestation MOIRA Encounter Attestation: "DougiepersonallyseenCIARRA Ravi andhavediscussed pertinent aspects of their care with Chris Cano agree with the history, physical exam (any modifications based on my personal exam will be noted below), assessment, and plan as outlined in original note. Please see immediately below for my summary of findings and additional assessment and plan along with any meaningful corrections/explanations to the Subjective/Objective portions of the MOIRA note will be noted." My portion of the encounter took place via telemedicine. -Patient presenting with symptomatic multiple electrolyte abnormalities (hypokalemia, hypomag, hypocal) after a recent diarrheal illness. Will replete and recheck tomorrow. If persistent hypocalcemia, will need additional work up. Diarrheal illness has resolved.
[2024-07-01] MEDS ORDERED: HUMALOG SQ PRN (17:53)
[2024-07-01] MEDS ORDERED: TYLENOL 325 MG PO PRN (17:53)
[2024-07-01] MEDS ORDERED: Zofran 4 MG/2 ML VIAL IV PRN (17:53)
[2024-07-01] MEDS: Sodium Chloride 0.9% 1000 ML 1,000 ML IV SCH (18:22)
[2024-07-01] MEDS: Klor Con PO SCH (18:40)
[2024-07-02 05:05] LABS: Absolute Neutrophil Ct (ANC) 4.65 x10^3/uL (1.56-6.13); BASOPHIL % 0.6 % (0.1-1.2); Basophil (Absolute #) 0.04 x10^3/uL (0.01-0.08); Eosinophil % 1.3 % (0.7-5.8); Eosinophil (Absolute #) 0.09 x10^3/uL (0.04-0.36); Hematocrit 32.6 % (34.1-44.9); Hemoglobin 10.5 g/dL (11.2-15.7); IMMATURE GRAN # 0.02 x10^3u/L (0.001-0.031); IMMATURE GRAN % 0.3 % (0.001-0.429); Lymphocyte (Absolute #) 1.69 x10^3/uL (1.18-3.74); Lymphocytes % 24.6 % (19.3-51.7); Mean Cell Volume 90.6 fL (79.4-94.8); Mean Corpuscular Hemoglobin 29.2 pg (25.6-32.2); Mean Corpuscular Hgb Concent. 32.2 g/dL (32.2-35.5); Mean Platelet Volume 8.3 fL (9.4-12.3); Monocyte (Absolute #) 0.37 x10^3/uL (0.24-0.86); Monocytes % 5.4 % (4.7-12.5); Neutrophil % 67.8 % (34.0-71.1); Platelet Count 290 x10^3/uL (182-369); Red Cell Distribution Width 13.7 % (11.7-14.4); White Blood Count 6.9 x10^3/uL (3.98-10.04)
--- NOTE | 2024-07-02 05:06 | PCM.NOTE ---
Date and Time: 07/02/24 0500 Subjective Assessment: Ms. De Leon is a 68 year old female with a pmhx of GERD, HTN, HLD, MENDOZA, hypothyroid s/p partial thyroidectomy, DM , and vitamin D deficiency who presented to ED 07/01/24 with complaints of intermittent facial and hand paresthesias, including tingling and muscle spasms, that began approximately one day prior to admission. About 10 days ago, she experienced the stomach flu with severe diarrhea and vomiting resulting in dehydration, for which she sought care at an outside emergency department in [place]. At that time, she was found to have hypokalemia (potassium reported at 2.8) and was started on oral potassium chloride 10 mEq twice daily, which she has been taking for the past week. She reports that her current symptoms began around the mouth and subsequently progressed to involve both hands. She describes the spasms as intermittent but increasing in frequency and consistency. There are no identifiable alleviating or aggravating factors. She also reports left hand contracture at one point. She reports she is no longer experiencing nausea, vomiting, or diarrhea. Last episode was approximately 5 days ago. Denies fever,cough, sob, cp, abdominal pain, PERDUE, or dizziness. Upon arrival to ED, vitals stable. Laboratory findings remarkable for normocytic anemia, persistent hypokalemia (potassium 3.1), hypocalcemia (calcium 7.4), hypomagnesemia (magnesium 0.6 ), and a mild acute kidney injury (creatinine 1.08 from a baseline of 0.6 ). Albumin was normal at 4.0. She received a 1-liter bolus of intravenous fluids, 2 grams of intravenous magnesium sulfate, and 1000 mg of intravenous calcium chloride. Admission for electrolyte management and monitoring. Objective Data Vital Signs: Vital Signs - 24 hr Temp Pulse Resp BP BP Pulse Ox 07/02/24 04:00 96.9 F 63 20 115/53 95 07/02/24 00:00 96.9 F 76 20 135/60 95 07/01/24 20:00 97.0 F 74 18 132/70 92 L 07/01/24 17:42 97.1 F 68 15 120/60 94 L 07/01/24 17:01 56 L 26 H 139/59 99 07/01/24 16:30 68 34 H 122/82 97 07/01/24 16:01 67 18 138/63 96 07/01/24 15:49 57 L 24 130/76 96 07/01/24 15:40 62 33 H 97 07/01/24 15:32 63 22 98 07/01/24 15:01 64 17 108/53 97 07/01/24 14:31 80 19 107/66 93 L 07/01/24 14:10 76 26 H 136/67 94 L 07/01/24 14:00 97.7 F 78 22 136/67 94 L Pain Assessment - Last Documented Pain Intensity 0 Intake and Output: Intake & Output 06/29/24 06/30/24 07/01/24 07/02/24 11:59 11:59 11:59 11:59 Intake Total 1221 Balance 1221 Weight 81.1 kg Lab Results: Lab Results-Last 24 Hours 07/01/24 07/01/24 07/01/24 Range/Units 14:20 14:20 19:00 WBC 9.0 (3.98-10.04) x10^3/uL RBC 3.77 L (3.93-5.22) x10^6/uL Hgb 10.9 L (11.2-15.7) g/dL Hct 33.5 L (34.1-44.9) % MCV 88.9 (79.4-94.8) fL MCH 28.9 (25.6-32.2) pg MCHC 32.5 (32.2-35.5) g/dL RDW 13.8 (11.7-14.4) % Plt Count 298 (182-369) x10^3/uL MPV 8.3 L (9.4-12.3) fL Gran % 71.6 H (34.0-71.1) % Immature Gran % (Auto) 0.9 H (0.001-0.429) % Nucleat RBC Rel Count 0.0 (0.00-0.2) % Eos # (Auto) 0.08 (0.04-0.36) x10^3/uL Immature Gran # (Auto) 0.08 H (0.001-0.031) x10^3u/L Absolute Lymphs (auto) 1.91 (1.18-3.74) x10^3/uL Absolute Monos (auto) 0.45 (0.24-0.86) x10^3/uL Absolute Nucleated RBC 0.00 (0.00-0.012) x10^3u/L Lymphocytes % 21.2 (19.3-51.7) % Monocytes % 5.0 (4.7-12.5) % Eosinophils % 0.9 (0.7-5.8) % Basophils % 0.4 (0.1-1.2) % Absolute Granulocytes 6.46 H (1.56-6.13) x10^3/uL Basophils # 0.04 (0.01-0.08) x10^3/uL Sodium 140 (135-145) mmol/L Potassium 3.1 L 3.3 L (3.5-5.1) mmol/L Chloride 97 L (98-107) mmol/L Carbon Dioxide 32 H (22-30) mmol/L Anion Gap 13.7 (5-15) MEQ/L BUN 19 H (7-17) mg/dL Creatinine 1.08 H (0.52-1.04) mg/dL Estimated GFR 56.3 ML/MIN Glucose 115 H (74-106) mg/dL POC Glucometer (74 to 106) mg/dL Calcium 7.4 L (8.4-10.2) mg/dL Magnesium 0.6 L* (1.6-2.3) mg/dL Total Bilirubin 0.50 (0.2-1.3) mg/dL AST 29 (14-36) U/L ALT 20 (0-35) U/L Alkaline Phosphatase 63 (38-126) U/L Serum Total Protein 7.1 (6.3-8.2) g/dL Albumin 4.0 (3.5-5.0) g/dL 07/01/24 07/01/24 07/01/24 Range/Units 21:10 21:45 23:00 WBC (3.98-10.04) x10^3/uL RBC (3.93-5.22) x10^6/uL Hgb (11.2-15.7) g/dL Hct (34.1-44.9) % MCV (79.4-94.8) fL MCH (25.6-32.2) pg MCHC (32.2-35.5) g/dL RDW (11.7-14.4) % Plt Count (182-369) x10^3/uL MPV (9.4-12.3) fL Gran % (34.0-71.1) % Immature Gran % (Auto) (0.001-0.429) % Nucleat RBC Rel Count (0.00-0.2) % Eos # (Auto) (0.04-0.36) x10^3/uL Immature Gran # (Auto) (0.001-0.031) x10^3u/L Absolute Lymphs (auto) (1.18-3.74) x10^3/uL Absolute Monos (auto) (0.24-0.86) x10^3/uL Absolute Nucleated RBC (0.00-0.012) x10^3u/L Lymphocytes % (19.3-51.7) % Monocytes % (4.7-12.5) % Eosinophils % (0.7-5.8) % Basophils % (0.1-1.2) % Absolute Granulocytes (1.56-6.13) x10^3/uL Basophils # (0.01-0.08) x10^3/uL Sodium (135-145) mmol/L Potassium 4.1 D (3.5-5.1) mmol/L Chloride (98-107) mmol/L Carbon Dioxide (22-30) mmol/L Anion Gap (5-15) MEQ/L BUN (7-17) mg/dL Creatinine (0.52-1.04) mg/dL Estimated GFR ML/MIN Glucose (74-106) mg/dL POC Glucometer 145 H (74 to 106) mg/dL Calcium (8.4-10.2) mg/dL Magnesium 2.3 (1.6-2.3) mg/dL Total Bilirubin (0.2-1.3) mg/dL AST (14-36) U/L ALT (0-35) U/L Alkaline Phosphatase (38-126) U/L Serum Total Protein (6.3-8.2) g/dL Albumin (3.5-5.0) g/dL Medications: Medications Generic Name Dose Route Start Last Admin Trade Name Freq PRN Reason Stop Dose Admin Acetaminophen 650 mg 07/01/24 17:53 Acetaminophen 325 Mg Tablet PO 07/31/24 17:52 Q4H PRN PRN PAIN, FEVER, HEADACHE Cholecalciferol 1,000 unit 07/02/24 10:00 Cholecalciferol (Vitamin D3) 1000 Unit Tablet PO 08/01/24 09:59 DAILY [facility] Enoxaparin Sodium 40 mg 07/02/24 10:00 Enoxaparin Sodium 40 Mg/0.4 Ml Syringe SQ 08/01/24 09:59 DAILY [facility] Sodium Chloride 1,000 mls @ 50 mls/hr 07/01/24 18:00 07/01/24 18:22 Sodium Chloride 0.9% 1000 Ml IV 07/31/24 17:59 50 mls/hr .Q20H [facility]KY Administration Insulin Human Lispro 0 unit 07/01/24 17:53 Insulin Lispro 1 Unit SQ 07/31/24 17:52 UD PRN HYPERGLYCEMIA Levothyroxine Sodium 50 mcg 07/02/24 10:00 Levothyroxine Sodium 50 Mcg Tablet PO 08/01/24 09:59 DAILY [facility] Lisinopril 20 mg 07/02/24 10:00 Lisinopril 20 Mg Tablet PO 08/01/24 09:59 DAILY [facility] Non-Formulary Medication 20 mg 07/02/24 10:00 Omeprazole [Omeprazole] PO 08/01/24 09:59 DAILY [facility] Non-Formulary Medication 10 meq 07/02/24 10:00 Potassium Chloride [Potassium Chloride] PO 08/01/24 09:59 BID [facility] Ondansetron HCl 4 mg 07/01/24 17:53 Ondansetron Hcl 4 Mg/2 Ml Vial IV 07/31/24 17:52 Q6H PRN PRN NAUSEA/VOMITING Discontinued Medications Generic Name Dose Route Start Last Admin Trade Name Freq PRN Reason Stop Dose Admin Calcium Chloride Confirm 07/01/24 16:17 Calcium Chloride 100 Mg/Ml 10ml Inj. Administered 07/01/24 16:18 Dose 1,000 mg .ROUTE .STK-MED ONE Hydromorphone HCl 1 mg 07/01/24 17:01 07/01/24 17:02 Hydromorphone 1 Mg/1ml Inj IV 07/01/24 17:02 Not Given STAT ONE Sodium Chloride 1,000 mls @ 999 mls/hr 07/01/24 14:13 07/01/24 15:38 Sodium Chloride 0.9% 1000 Ml IV 07/01/24 15:13 Infused .Q1H1M STA Infusion Sodium Chloride Confirm 07/01/24 14:30 Sodium Chloride 0.9% 1000 Ml Administered 07/01/24 14:31 Dose 1,000 mls @ ud .ROUTE .STK-MED ONE Magnesium Sulfate/Water 2 gm in 50 mls @ 100 mls/hr 07/01/24 15:33 07/01/24 16:13 Magnesium Sulf 2 G/50 Ml Bag IV 07/01/24 16:02 Infused ONCE ONE Infusion Calcium Chloride 1,000 mg/ 110 mls @ 220 mls/hr 07/01/24 15:34 07/01/24 16:58 Sodium Chloride IV 07/01/24 16:03 Infused ONCE ONE Infusion Magnesium Sulfate/Water Confirm 07/01/24 15:39 Magnesium Sulf 2 G/50 Ml Bag Administered 07/01/24 15:40 Dose 2 gm in 50 mls @ ud IV .STK-MED ONE Sodium Chloride Confirm 07/01/24 16:17 Sodium Chloride 0.9% Administered 07/01/24 16:18 Dose 100 mls @ ud .ROUTE .STK-MED ONE Magnesium Sulfate/Water 2 gm in 50 mls @ 100 mls/hr 07/01/24 18:30 07/01/24 18:41 Magnesium Sulf 2 G/50 Ml Bag IV 07/01/24 18:59 100 mls/hr ONCE ONE Administration Non-Formulary Medication 1 tab 07/02/24 10:00 Lisinopril/Hydrochlorothiazide [Lisinopril-Hctz 20-12.5 Mg Tab] PO 08/01/24 09:59 DAILY [facility] Potassium Chloride 20 meq 07/01/24 18:00 07/02/24 00:21 Potassium Chloride Tab 10 Meq Tab PO 07/02/24 00:01 20 meq Q2H MIKY Administration Assessment/Plan (1) Hypomagnesemia Current Visit: Yes Status: Acute Assessment & Plan: -Likely secondary to diarrhea -Magnesium was critically low at 0.6 -Received 2 grams of IV magnesium sulfate in the ED -Continue IV magnesium sulfate replacement with another 2g -Repeat Mag level in 6 hours -Tele 07/02/24: -Mag level reviewed -now wnl at 2.0 -resolved Code(s): E83.42 - HYPOMAGNESEMIA (2) Hypocalcemia Current Visit: Yes Status: Acute Assessment & Plan: -Calcium 7.4 on admission with normal albumin (4.0 g/dL) in the setting of critical mag level at 0.6 -Likely secondary to hypomagnesemia impairing parathyroid hormone function -Obtain vitamin D, PTH intact and Ionized calcium levels in the a.m if levels still low after correcting magnesium level -Received 1000 mg IV calcium chloride in the ED -Continue calcium supplementation as needed -Monitor serum calcium levels every 612 hours -Replete magnesium 07/02/24: -Calcium level reviewed and improved at 8.0 - will continue tums bid -Ionized calcium mildly low Code(s): E83.51 - HYPOCALCEMIA (3) Hypokalemia Current Visit: Yes Status: Acute Assessment & Plan: -Potassium reviewed at 3.1 on admission -Replenish per potassium protocol -Monitor renal/lytes daily -Replete carefully in setting of concurrent hypomagnesemia to optimize potassium uptake -Tele 07/02/24: -Potassium levels now wnl at 4.9 - resolved - continue home regimen Code(s): E87.6 - HYPOKALEMIA (4) Hypothyroidism (acquired) Current Visit: Yes Status: Acute Assessment & Plan: -continue home meds -s/p partial thyroidectomy -TSH reviewed from OP labs 06/28/24- WNL at 0.734 Code(s): E03.9 - HYPOTHYROIDISM, UNSPECIFIED (5) Type 2 diabetes mellitus Current Visit: Yes Status: Acute Assessment & Plan: -Newly diagnosed OP- started on metformin -will hold for now -SSI -A1c reviewed from 06/28/24 - 6.83 (6) HTN (hypertension) Current Visit: Yes Status: Acute Assessment & Plan: -BP stable - continue home meds Code(s): I10 - ESSENTIAL (PRIMARY) HYPERTENSION (7) Vitamin D deficiency Current Visit: Yes Status: Acute Assessment & Plan: -Reviewed OP labs from 06/28/24 - vitamin D level at 18.8 - will continue supplementation per guidelines at 1000 mg daily cholecalciferol Code(s): E55.9 - VITAMIN D DEFICIENCY, UNSPECIFIED (8) Normocytic anemia Current Visit: Yes Status: Acute Assessment & Plan: -Anemia noted on labs; presumed chronic but unclear etiology -No acute bleeding identified -Monitor hemoglobin/hematocrit -Consider outpatient workup -iron studies, B12, folate, reticulocyte count VTE: Lovenox PPI: Protonix Dispo: 1-2 days Code(s): E83.42 - HYPOMAGNESEMIA (2) Hypocalcemia Current Visit: Yes Status: Acute Code(s): E83.51 - HYPOCALCEMIA (3) Hypokalemia Current Visit: Yes Status: Acute Code(s): E87.6 - HYPOKALEMIA (4) Hypothyroidism (acquired) Current Visit: Yes Status: Acute Code(s): E03.9 - HYPOTHYROIDISM, UNSPECI FIED (5) Type 2 diabetes mellitus Current Visit: Yes Status: Acute (6) HTN (hypertension) Current Visit: Yes Status: Acute Code(s): I10 - ESSENTIAL (PRIMARY) HYPERTENSION (7) Vitamin D deficiency Current Visit: Yes Status: Acute Code(s): E55.9 - VITAMIN D DEFICIENCY, UNSPECIFIED (8) Normocytic anemia Current Visit: Yes Status: Acute Code(s): D64.9 - ANEMIA, UNSPECIFIED
[2024-07-02 05:22] LABS: ALBUMIN 3.5 g/dL (3.5-5.0); BILIRUBIN,TOTAL 0.6 mg/dL (0.2-1.3); Creatinine 1 0.74 mg/dL (0.52-1.04); EST GLOMERULAR FILTRATION RATE 88.6 ML/MIN; Potassium 4.9 mmol/L (3.5-5.1); Total Protein 6.5 g/dL (6.3-8.2)
[2024-07-02] MEDS ORDERED: Calcium Gluconate 10% 1000 MG IV ONE (05:54)
[2024-07-02] MEDS ORDERED: Sodium Chloride 100ML MINI-BAG PLUS 100 ML IV ONE (05:56)
[2024-07-02] MEDS: Calcium Gluconate 10% 1000 MG 1,000 MG in Sodium Chloride 0.9% 100 ML IV ONE (05:58)
[2024-07-02 07:15] VITALS: RESP 16
--- NOTE | 2024-07-02 08:41 | PCM.DS ---
Discharge Summary Date of Admission: 07/01/24 17:18 Date of Discharge: 07/02/24 Admitting Physician: ALEKSANDR ROJAS MD Primary Care Provider: ANNE COLON Allergies Allergies hydrocodone Adverse Reaction (Verified 07/01/24 14:04) Vomiting morphine Adverse Reaction (Verified 07/01/24 14:04) Vomiting Hospital Summary - Hospital Course Hospital Course: Ms. De Leon is a 68-year-old female with a past medical history of gastroesophageal reflux disease, hypertension, hyperlipidemia, obstructive sleep apnea, hypothyroidism status post partial thyroidectomy, type 2 diabetes mellitus (newly diagnosed - appt today with PCP to get started on metformin), and vitamin D deficiency presented on 07/01/24 with complaints of intermittent facial and bilateral hand paresthesias, including tingling and muscle spasms that began approximately one day prior to admission. Approximately ten days earlier, the patient had experienced a viral gastroenteritis with significant vomiting and diarrhea, resulting in dehydration and hypokalemia (potassium 2.8 mmol/L) for which she was started on oral potassium chloride 10 mEq twice daily. Her paresthesias initially began around the mouth and subsequently progressed to involve both hands, associated with intermittent spasms and a reported episode of left-hand contracture. She denied further episodes of diarrhea, nausea, vomiting, fever, respiratory symptoms, chest pain, abdominal pain, headache, or dizziness at the time of presentation. Upon arrival to the emergency department, the patient was hemodynamically stable. Laboratory workup revealed persistent hypokalemia (3.1), critically low magnesium (0.6), hypocalcemia (7.4 ) with a normal albumin (4.0), mild acute kidney injury (creatinine 1.08, baseline 0.6), and normocytic anemia. She was treated with intravenous fluids, 4 grams of magnesium sulfate, and 1000 mg of calcium chloride and 1,000mg of calcium gluconate. She was admitted for electrolyte monitoring and management. During hospitalization, her magnesium normalized to 2.0 mg/dL with IV repletion, her potassium corrected to 4.9 mmol/L, and her serum calcium improved to 8.0 mg/dL. Ionized calcium remained mildly low, and she was discharged with continuation of oral calcium carbonate (Tums) twice daily. Vitamin D levels low and patient started on daily regimen of vitamin D per current guidelines of 1000 units of cholecalciferol daily. Parathyroid hormone (PTH), and ionized calcium levels were monitored, given the interplay between hypomagnesemia and impaired PTH activity contributing to hypocalcemia. Patient is stable and requesting discharge. She has a follow up appt today with PCP to discuss lab findings from 06/28/24 including new diagnosis of type 2 diabetes mellitus. Advised patient to keep appt. Discharge Note New Diagnosis: Hypocalcemia, hypokalemia, hypomagnesemia New Medications: Tums BID and vitamin D Follow Up: PCP today I spent 35 minutes [id number] with the patient on the day of discharge performing discharge exam, discussing hospital stay and discharge instructions with patient and caregivers, preparation of discharge records, prescriptions & referral forms and addressing any questions/concerns the patient had as documented above. - Vitals & Intake/Output Vital Signs: Vital Signs Temperature 98.0 F 07/02/24 07:14 Pulse Rate 79 07/02/24 07:14 Respiratory Rate 16 07/02/24 07:14 Blood Pressure 121/56 07/02/24 07:14 O2 Sat by Pulse Oximetry 93 L 07/02/24 07:14 Intake & Output: Intake & Output 06/29/24 06/30/24 07/01/24 07/02/24 11:59 11:59 11:59 11:59 Intake Total 1221 Balance 1221 Weight 80.8 kg - Lab Result Diagrams: 07/02/24 04:55 07/02/24 04:55 Lab Results-Last 24 Hrs: Lab Results-Last 24 Hours 07/01/24 07/01/24 07/01/24 Range/Units 14:20 14:20 19:00 WBC 9.0 (3.98-10.04) x10^3/uL RBC 3.77 L (3.93-5.22) x10^6/uL Hgb 10.9 L (11.2-15.7) g/dL Hct 33.5 L (34.1-44.9) % MCV 88.9 (79.4-94.8) fL MCH 28.9 (25.6-32.2) pg MCHC 32.5 (32.2-35.5) g/dL RDW 13.8 (11.7-14.4) % Plt Count 298 (182-369) x10^3/uL MPV 8.3 L (9.4-12.3) fL Gran % 71.6 H (34.0-71.1) % Immature Gran % (Auto) 0.9 H (0.001-0.429) % Nucleat RBC Rel Count 0.0 (0.00-0.2) % Eos # (Auto) 0.08 (0.04-0.36) x10^3/uL Immature Gran # (Auto) 0.08 H (0.001-0.031) x10^3u/L Absolute Lymphs (auto) 1.91 (1.18-3.74) x10^3/uL Absolute Monos (auto) 0.45 (0.24-0.86) x10^3/uL Absolute Nucleated RBC 0.00 (0.00-0.012) x10^3u/L Lymphocytes % 21.2 (19.3-51.7) % Monocytes % 5.0 (4.7-12.5) % Eosinophils % 0.9 (0.7-5.8) % Basophils % 0.4 (0.1-1.2) % Absolute Granulocytes 6.46 H (1.56-6.13) x10^3/uL Basophils # 0.04 (0.01-0.08) x10^3/uL Ionized Calcium (1.12-1.32) mmol/L Sodium 140 (135-145) mmol/L Potassium 3.1 L 3.3 L (3.5-5.1) mmol/L Chloride 97 L (98-107) mmol/L Carbon Dioxide 32 H (22-30) mmol/L Anion Gap 13.7 (5-15) MEQ/L BUN 19 H (7-17) mg/dL Creatinine 1.08 H (0.52-1.04) mg/dL Estimated GFR 56.3 ML/MIN Glucose 115 H (74-106) mg/dL POC Glucometer (74 to 106) mg/dL Calcium 7.4 L (8.4-10.2) mg/dL Magnesium 0.6 L* (1.6-2.3) mg/dL Total Bilirubin 0.50 (0.2-1.3) mg/dL AST 29 (14-36) U/L ALT 20 (0-35) U/L Alkaline Phosphatase 63 (38-126) U/L Serum Total Protein 7.1 (6.3-8.2) g/dL Albumin 4.0 (3.5-5.0) g/dL 07/01/24 07/01/24 07/01/24 Range/Units 21:10 21:45 23:00 WBC (3.98-10.04) x10^3/uL RBC (3.93-5.22) x10^6/uL Hgb (11.2-15.7) g/dL Hct (34.1-44.9) % MCV (79.4-94.8) fL MCH (25.6-32.2) pg MCHC (32.2-35.5) g/dL RDW (11.7-14.4) % Plt Count (182-369) x10^3/uL MPV (9.4-12.3) fL Gran % (34.0-71.1) % Immature Gran % (Auto) (0.001-0.429) % Nucleat RBC Rel Count (0.00-0.2) % Eos # (Auto) (0.04-0.36) x10^3/uL Immature Gran # (Auto) (0.001-0.031) x10^3u/L Absolute Lymphs (auto) (1.18-3.74) x10^3/uL Absolute Monos (auto) (0.24-0.86) x10^3/uL Absolute Nucleated RBC (0.00-0.012) x10^3u/L Lymphocytes % (19.3-51.7) % Monocytes % (4.7-12.5) % Eosinophils % (0.7-5.8) % Basophils % (0.1-1.2) % Absolute Granulocytes (1.56-6.13) x10^3/uL Basophils # (0.01-0.08) x10^3/uL Ionized Calcium (1.12-1.32) mmol/L Sodium (135-145) mmol/L Potassium 4.1 D (3.5-5.1) mmol/L Chloride (98-107) mmol/L Carbon Dioxide (22-30) mmol/L Anion Gap (5-15) MEQ/L BUN (7-17) mg/dL Creatinine (0.52-1.04) mg/dL Estimated GFR ML/MIN Glucose (74-106) mg/dL POC Glucometer 145 H (74 to 106) mg/dL Calcium (8.4-10.2) mg/dL Magnesium 2.3 (1.6-2.3) mg/dL Total Bilirubin (0.2-1.3) mg/dL AST (14-36) U/L ALT (0-35) U/L Alkaline Phosphatase (38-126) U/L Serum Total Protein (6.3-8.2) g/dL Albumin (3.5-5.0) g/dL 07/02/24 07/02/24 07/02/24 Range/Units 04:00 04:55 04:55 WBC 6.9 (3.98-10.04) x10^3/uL RBC 3.60 L (3.93-5.22) x10^6/uL Hgb 10.5 L (11.2-15.7) g/dL Hct 32.6 L (34.1-44.9) % MCV 90.6 (79.4-94.8) fL MCH 29.2 (25.6-32.2) pg MCHC 32.2 (32.2-35.5) g/dL RDW 13.7 (11.7-14.4) % Plt Count 290 (182-369) x10^3/uL MPV 8.3 L (9.4-12.3) fL Gran % 67.8 (34.0-71.1) % Immature Gran % (Auto) 0.3 (0.001-0.429) % Nucleat RBC Rel Count 0.0 (0.00-0.2) % Eos # (Auto) 0.09 (0.04-0.36) x10^3/uL Immature Gran # (Auto) 0.02 (0.001-0.031) x10^3u/L Absolute Lymphs (auto) 1.69 (1.18-3.74) x10^3/uL Absolute Monos (auto) 0.37 (0.24-0.86) x10^3/uL Absolute Nucleated RBC 0.00 (0.00-0.012) x10^3u/L Lymphocytes % 24.6 (19.3-51.7) % Monocytes % 5.4 (4.7-12.5) % Eosinophils % 1.3 (0.7-5.8) % Basophils % 0.6 (0.1-1.2) % Absolute Granulocytes 4.65 (1.56-6.13) x10^3/uL Basophils # 0.04 (0.01-0.08) x10^3/uL Ionized Calcium 1.05 L (1.12-1.32) mmol/L Sodium 140 (135-145) mmol/L Potassium 4.9 (3.5-5.1) mmol/L Chloride 105 (98-107) mmol/L Carbon Dioxide 29 (22-30) mmol/L Anion Gap 12.0 (5-15) MEQ/L BUN 13 (7-17) mg/dL Creatinine 0.74 (0.52-1.04) mg/dL Estimated GFR 88.6 ML/MIN Glucose 120 H (74-106) mg/dL POC Glucometer (74 to 106) mg/dL Calcium 8.0 L (8.4-10.2) mg/dL Magnesium 2.0 (1.6-2.3) mg/dL Total Bilirubin 0.60 (0.2-1.3) mg/dL AST 24 (14-36) U/L ALT 16 (0-35) U/L Alkaline Phosphatase 60 (38-126) U/L Serum Total Protein 6.5 (6.3-8.2) g/dL Albumin 3.5 (3.5-5.0) g/dL 07/02/24 Range/Units 07:36 WBC (3.98-10.04) x10^3/uL RBC (3.93-5.22) x10^6/uL Hgb (11.2-15.7) g/dL Hct (34.1-44.9) % MCV (79.4-94.8) fL MCH (25.6-32.2) pg MCHC (32.2-35.5) g/dL RDW (11.7-14.4) % Plt Count (182-369) x10^3/uL MPV (9.4-12.3) fL Gran % (34.0-71.1) % Immature Gran % (Auto) (0.001-0.429) % Nucleat RBC Rel Count (0.00-0.2) % Eos # (Auto) (0.04-0.36) x10^3/uL Immature Gran # (Auto) (0.001-0.031) x10^3u/L Absolute Lymphs (auto) (1.18-3.74) x10^3/uL Absolute Monos (auto) (0.24-0.86) x10^3/uL Absolute Nucleated RBC (0.00-0.012) x10^3u/L Lymphocytes % (19.3-51.7) % Monocytes % (4.7-12.5) % Eosinophils % (0.7-5.8) % Basophils % (0.1-1.2) % Absolute Granulocytes (1.56-6.13) x10^3/uL Basophils # (0.01-0.08) x10^3/uL Ionized Calcium (1.12-1.32) mmol/L Sodium (135-145) mmol/L Potassium (3.5-5.1) mmol/L Chloride (98-107) mmol/L Carbon Dioxide (22-30) mmol/L Anion Gap (5-15) MEQ/L BUN (7-17) mg/dL Creatinine (0.52-1.04) mg/dL Estimated GFR ML/MIN Glucose (74-106) mg/dL POC Glucometer 147 H (74 to 106) mg/dL Calcium (8.4-10.2) mg/dL Magnesium (1.6-2.3) mg/dL Total Bilirubin (0.2-1.3) mg/dL AST (14-36) U/L ALT (0-35) U/L Alkaline Phosphatase (38-126) U/L Serum Total Protein (6.3-8.2) g/dL Albumin (3.5-5.0) g/dL Micro Results-Entire Visit: Accuchecks Date 07/02/24 Date 07/01/24 Time 07:48 Time 22:00 Discharge Exam General Appearance: no apparent distress Neurologic Exam: alert, oriented x 3, cooperative Eye Exam: PERRL Ears, Nose, Throat Exam: normal ENT inspection Neck Exam: normal inspection Respiratory Exam: normal breath sounds, lungs clear Cardiovascular Exam: regular rate/rhythm, normal heart sounds Gastrointestinal/Abdomen Exam: soft, normal bowel sounds Pelvic Exam: deferred Rectal Exam: deferred Back Exam: normal inspection Extremity Exam: normal inspection Skin Exam: normal color Final Diagnosis/Problem List - Final Discharge Diagnosis/Problem (1) Hypomagnesemia Current Visit: Yes Status: Resolved Assessment & Plan: -Likely secondary to diarrhea -Magnesium was critically low at 0.6 -Received 2 grams of IV magnesium sulfate in the ED -Continue IV magnesium sulfate replacement with another 2g -Repeat Mag level in 6 hours -Tele 07/02/24: -Mag level reviewed -now wnl at 2.0 -resolved Code(s): E83.42 - HYPOMAGNESEMIA (2) Hypocalcemia Current Visit: Yes Status: Acute Assessment & Plan: -Calcium 7.4 on admission with normal albumin (4.0 g/dL) in the setting of critical mag level at 0.6 -Likely secondary to hypomagnesemia impairing parathyroid hormone function -Obtain vitamin D, PTH intact and Ionized calcium levels in the a.m if levels still low after correcting magnesium level -Received 1000 mg IV calcium chloride in the ED -Continue calcium supplementation as needed -Monitor serum calcium levels every 612 hours -Replete magnesium 07/02/24: -Calcium level reviewed and improved at 8.0 -patient received calcium gluconate- will continue tums bid as OP -Ionized calcium mildly low Code(s): E83.51 - HYPOCALCEMIA (3) Hypokalemia Current Visit: Yes Status: Acute Assessment & Plan: -Potassium reviewed at 3.1 on admission -Replenish per potassium protocol -Monitor renal/lytes daily -Replete carefully in setting of concurrent hypomagnesemia to optimize potassium uptake -Tele 07/02/24: -Potassium levels now wnl at 4.9 - resolved - continue home regimen Code(s): E87.6 - HYPOKALEMIA (4) Hypothyroidism (acquired) Current Visit: Yes Status: Acute Assessment & Plan: -continue home meds -s/p partial thyroidectomy -TSH reviewed from OP labs 06/28/24- WNL at 0.734 Code(s): E03.9 - HYPOTHYROIDISM, UNSPECIFIED (5) Type 2 diabetes mellitus Current Visit: Yes Status: Acute Assessment & Plan: -Newly diagnosed OP- started on metformin -will hold for now -SSI -A1c reviewed from 06/28/24 - 6.83 (6) HTN (hypertension) Current Visit: Yes Status: Acute Assessment & Plan: -BP stable - continue home meds Code(s): I10 - ESSENTIAL (PRIMARY) HYPERTENSION (7) Vitamin D deficiency Current Visit: Yes Status: Acute Assessment & Plan: -Reviewed OP labs from 06/28/24 - vitamin D level at 18.8 - will continue supplementation per guidelines at 1000 mg daily cholecalciferol Code(s): E55.9 - VITAMIN D DEFICIENCY, UNSPECIFIED (8) Normocytic anemia Current Visit: Yes Status: Acute Assessment & Plan: -Anemia noted on labs; presumed chronic but unclear etiology -No acute bleeding identified -Monitor hemoglobin/hematocrit -Consider outpatient workup -iron studies, B12, folate, reticulocyte count Code(s): E83.42 - HYPOMAGNESEMIA (2) Hypocalcemia Current Visit: Yes Status: Acute Code(s): E83.51 - HYPOCALCEMIA (3) Hypokalemia Current Visit: Yes Status: Resolved Code(s): E87.6 - HYPOKALEMIA (4) Hypothyroidism (acquired) Current Visit: Yes Status: Chronic Code(s): E03.9 - HYPOTHYROIDISM, UNSPECIFIED (5) Type 2 diabetes mellitus Current Visit: Yes Status: Chronic (6) HTN (hypertension) Current Visit: Yes Status: Chronic Code(s): I10 - ESSENTIAL (PRIMARY) HYPERTENSION (7) Vitamin D deficiency Current Visit: Yes Status: Acute Code(s): E55.9 - VITAMIN D DEFICIENCY, UNSPECIFIED (8) Normocytic anemia Current Visit: Yes Status: Chronic Code(s): D64.9 - ANEMIA, UNSPECIFIED - Discharge Discharge Date: 07/02/24 Disposition: Home, Self-Care Condition: Stable Prescriptions: New Calcium Carbonate 750 mg [Tums EX 750 MG] 750 mg PO BID 30 Days #60 tablet Cholecalciferol (Vitamin D3) [Vitamin D] 1,000 unit PO DAILY 30 Days #30 tablet Continue Levothyroxine Sodium 50 Mcg [Synthroid 50 Mcg] 50 mcg PO DAILY Lisinopril/Hydrochlorothiazide [Lisinopril-Hctz 20-12.5 mg Tab] 1 tab PO DAILY Potassium Chloride 10 meq PO BID Omeprazole 20 mg PO DAILY Follow up with: ANNE COLON MD [Primary Care Provider, [facility]]
[2024-07-02] MEDS: Klor Con PO SCH (09:56)
[2024-07-02] MEDS: SYNTHROID 50 MCG PO SCH (09:57)
[2024-07-02] MEDS: ENOXAPARIN SODIUM SQ SCH (09:57)
[2024-07-02] MEDS: VITAMIN D PO SCH (09:57)
[2024-07-02] MEDS: Zestril 20 MG PO SCH (09:57)
[2024-07-02] MEDS: Tums EX 750 MG PO SCH (09:57)
[2024-07-02] MEDS: Protonix 40MG Tablet PO SCH (09:57)
[2024-07-02] MEDS ORDERED: NON-FORMULARY ITEM (Lisinopril/Hydrochlorothiazide [Lisinopril-Hctz 20-12.5 Mg Tab] 1 EACH PO SCH (10:00)
[2024-07-02 11:36] VITALS: BP 116/56; PULSE 65; TEMP 97.7; O2SAT 92
== END 2024-07-02 12:32 | disposition home or self-care (01) ==
LOC: ED 13:47 → MED SURG 17:18
PROVIDERS: ADMIT Internal Medicine; ATTEND Internal Medicine
DX: E83.42 Hypomagnesemia (principal); E83.51 Hypocalcemia; E87.6 Hypokalemia; E03.9 Hypothyroidism, unspecified; E11.9 Type 2 diabetes mellitus without complications; I10 Essential (primary) hypertension; G47.33 Obstructive sleep apnea (adult) (pediatric); K21.9 Gastro-esophageal reflux disease without esophagitis; Z79.899 Other long term (current) drug therapy
CPT/HCPCS: 36415; 80053; 82330; 82947; 83735; 83970; 84132; 85025; 93005; 93268; 99285; J0612; J1650; Q3014; A9270-GY; G0378; J3475